=== PATIENT | female | born 1975 | race Caucasian/White ===

== ENCOUNTER 2016-07-21 11:31 | Emergency (ER) | payer OTHER ==
[~2016-07-21] VITALS: Ht 165.1 cm; Wt 86.2 kg
[~2016-07-21 11:31] MED LIST: ATORVASTATIN CA20 MG PO; CEFTRIAXONE2 G1 IM; CLEOCIN300 MG PO; CLINDAMYCIN HC300 MG PO; EXTRA STRENGTH500 M1 PO; HUMALOG100 UNIT/1 SC; LANTUS 10100 UNITS/ SC; LISINOPRIL10 MG PO; LORADAMED10 MG PO; METFORMIN HCL500 MG PO; OMEPRAZOLE40 M1 PO; PROZAC20 MG PO; SANTYL30 GM TP
[2016-07-21] MEDS ORDERED: RANITIDINE HCL150 MG PO (13:42)
[2016-07-21] MEDS ORDERED: PANTOPRAZOLE SO40 MG PO (13:42)
[2016-07-21] MEDS ORDERED: LISINOPRIL20 MG PO (13:44)
[2016-07-21] MEDS ORDERED: GABAPENTIN100 MG PO (13:45)
[2016-07-21] MEDS ORDERED: OTEZLA30 MG PO (13:46)
[2016-07-21 14:22] LABS: EOSINOPHIL (%) 0.4 % (0-5); EOSINOPHIL COUNT 0.1 K/uL (0-0.3); HEMATOCRIT 41.1 % (36.0-46.0); IMMATURE GRANULOCYTE (%) 0.6 % (0.0-0.7); IMMATURE GRANULOCYTE COUNT 0.1 K/uL; INSTRUMENT ABS NEUTROPHIL CT 11.3 K/uL; LYMPHOCYTE COUNT 1.6 K/uL (1.0-2.8); MCH 28.8 PG (29.0-34.0); MCHC 33.1 G/DL (30.0-36.0); MCV 87.1 FL (83-99); MEAN PLAT.VOLUME 9.6 uM^3 (9.5-12.4); MONOCYTE (%) 6.8 % (3-12); NEUTROPHIL (%) 80.7 % (45-76); NEUTROPHIL COUNT 11.3 K/uL (1.8-6.4); PLATELET COUNT 367 K/uL (156-360); RBC DIS.WIDTH-CV 13.5 % (11.8-14.6); RED BLOOD COUNT 4.72 M/uL (3.80-5.20)
[2016-07-21 14:30] LABS: CHLORIDE 100 mEq/L (99-109); POTASSIUM 4.3 mEq/L (3.7-5.4); SODIUM 135 mEq/L (136-147)
[2016-07-21 14:33] LABS: ANION GAP 12 MEQ/L (2-14)
[2016-07-21 14:34] LABS: TOTAL BILIRUBIN 0.6 mg/dL (0.0-1.0)
[2016-07-21 14:35] LABS: ALKALINE PHOSPHATASE 88 IU/L (3-129)
[2016-07-21 14:36] LABS: GFR ESTIMATE (CALCULATED) 58 mL/min/
[2016-07-21 14:37] LABS: UREA NITROGEN (BUN) 16 mg/dL (9-23)
[2016-07-21 14:39] LABS: ADD MIUA? YES; BILIRUBIN NEGATIVE; BLOOD MODERATE; COLOR YELLOW ((YELLOW)); GLUCOSE (STRIP) >=500; KETONES 20; LEUKOCYTES LARGE; NITRITE NEGATIVE; PROTEIN (STRIP) >=500; SPECIFIC GRAVITY 1.032 (1.000-1.030); UROBILINOGEN 0.2 MG/DL (0.2-1.0)
[2016-07-21 14:45] LABS: QUANTITATIVE HCG < 4.0 MIU/ML
[2016-07-21 14:47] LABS: GLUCOSE 568 mg/dL (70-99)
[2016-07-21 15:07] LABS: BACTERIA 2+ /HPF; CASTS NONE SEEN /LPF; CRYSTALS NONE SEEN; EPITHELIAL CELLS 2+ /HPF; MUCUS NONE SEEN /LPF; RED BLOOD CELLS 15-20 /HPF (0-5); WHITE BLOOD CELLS TNTC /HPF (0-5)
[2016-07-21 16:23] LABS: POINT-OF-CARE METER ID UU14100415
[2016-07-21 16:49] LABS: CHLORIDE 107 mEq/L (99-109); POTASSIUM 3.9 mEq/L (3.7-5.4); SODIUM 137 mEq/L (136-147)
[2016-07-21 16:51] LABS: GLUCOSE 389 mg/dL (70-99)
[2016-07-21 16:53] LABS: ANION GAP 8 MEQ/L (2-14)
[2016-07-21 16:55] LABS: GFR ESTIMATE (CALCULATED) > 59 mL/min/
[2016-07-21 16:56] LABS: UREA NITROGEN (BUN) 14 mg/dL (9-23)
[2016-07-21 17:36] LABS: POINT-OF-CARE METER ID UU13113702
[2016-07-21 18:13] LABS: POINT-OF-CARE METER ID UU13113702
[2016-07-21 19:32] LABS: POINT-OF-CARE METER ID UU13113702
[2016-07-21] MEDS ORDERED: BACTRIM,SEPT1 TABLET PO (20:03)
[2016-07-21] MEDS ORDERED: ZOFRAN4 MG PO (20:03)
[2016-07-21 20:14] VITALS: BP 158/90
== END 2016-07-21 20:19 | disposition home or self-care (01) ==
LOC: RME 11:31 → EME 11:31 → RME 20:19
PROVIDERS: Emergency Medicine; Physician Assistant
DX: N12 Tubulo-interstitial nephritis, not specified as acute or chronic (principal); E11.65 Type 2 diabetes mellitus with hyperglycemia; T38.3X6A Underdosing of insulin and oral hypoglycemic [antidiabetic] drugs, initial encounter; Z91.128 Patient's intentional underdosing of medication regimen for other reason; Z79.4 Long term (current) use of insulin; F32.9 Major depressive disorder, single episode, unspecified; K21.9 Gastro-esophageal reflux disease without esophagitis
CPT/HCPCS: 74177; 80048 91; 80053; 81003; 82948; 84702; 85025; 99281; 99285; J0696; J2270; J7030; J7050

== ENCOUNTER → 2016-09-28 | Outpatient (CLI) | payer OTHER ==
[~2016-09-28] MED LIST changes: +BACTRIM,SEPT1 TABLET PO; +GABAPENTIN100 MG PO; +LISINOPRIL20 MG PO; +OTEZLA30 MG PO; +PANTOPRAZOLE SO40 MG PO; +RANITIDINE HCL150 MG PO; +ZOFRAN4 MG PO
== END | disposition home or self-care (01) ==
LOC: PICC 09:22
DX: M86.171 Other acute osteomyelitis, right ankle and foot (principal)
CPT/HCPCS: 76937

== ENCOUNTER 2016-10-12 13:15 | Emergency (ER) | payer OTHER ==
[~2016-10-12] VITALS: Ht 160 cm; Wt 87.3 kg
[2016-10-12 13:31] LABS: POINT-OF-CARE METER ID UU13113778
[2016-10-12 14:03] LABS: CHLORIDE 102 mEq/L (99-109); POTASSIUM 4.5 mEq/L (3.7-5.4); SODIUM 135 mEq/L (136-147)
[2016-10-12 14:07] LABS: ANION GAP 9 MEQ/L (2-14)
[2016-10-12 14:08] LABS: TOTAL BILIRUBIN 0.4 mg/dL (0.0-1.0)
[2016-10-12 14:09] LABS: ADD MIUA? YES; BILIRUBIN NEGATIVE; BLOOD SMALL; COLOR YELLOW ((YELLOW)); GLUCOSE (STRIP) >=500; KETONES NEGATIVE; LEUKOCYTES NEGATIVE; NITRITE NEGATIVE; PROTEIN (STRIP) 100; SPECIFIC GRAVITY 1.027 (1.000-1.030); UROBILINOGEN 0.2 MG/DL (0.2-1.0)
[2016-10-12 14:09] LABS: ALKALINE PHOSPHATASE 72 IU/L (3-129); GFR ESTIMATE (CALCULATED) > 59 mL/min/
[2016-10-12 14:10] LABS: UREA NITROGEN (BUN) 18 mg/dL (9-23)
[2016-10-12 14:13] LABS: BACTERIA NONE SEEN /HPF; EPITHELIAL CELLS 1+ /HPF; MUCUS TRACE /LPF; RED BLOOD CELLS 0-5 /HPF (0-5); UCUL ADDED? NO; WHITE BLOOD CELLS 0-5 /HPF (0-5)
[2016-10-12 14:18] LABS: QUANTITATIVE HCG < 4.0 MIU/ML
[2016-10-12 14:19] LABS: GLUCOSE 435 mg/dL (70-99)
[2016-10-12 17:55] LABS: HEMATOCRIT 35.7 % (36.0-46.0); MCH 29.1 PG (29.0-34.0); MCHC 34.5 G/DL (30.0-36.0); MCV 84.4 FL (83-99); MEAN PLAT.VOLUME 9.6 uM^3 (9.5-12.4); PLATELET COUNT 289 K/uL (156-360); RBC DIS.WIDTH-CV 12.5 % (11.8-14.6); RBC DIS.WIDTH-SD 37.2 % (39-53); RED BLOOD COUNT 4.23 M/uL (3.80-5.20); WHITE BLOOD COUNT 10.4 K/uL (4.1-10.2)
[2016-10-12] MEDS ORDERED: ZOFRAN ODT4 MG PO (18:25)
[2016-10-12 18:49] VITALS: BP 130/76
== END 2016-10-12 19:00 | disposition home or self-care (01) ==
LOC: EME 13:15
PROVIDERS: Emergency Medicine; Nurse Practitioner Family
DX: E86.0 Dehydration (principal); E11.65 Type 2 diabetes mellitus with hyperglycemia; K52.9 Noninfective gastroenteritis and colitis, unspecified; Z79.4 Long term (current) use of insulin; K21.9 Gastro-esophageal reflux disease without esophagitis
CPT/HCPCS: 80053; 81003; 82948; 83605; 84702; 85027; 87040; 99281; 99284; J2405; J7030

== ENCOUNTER 2017-05-27 10:03 | Emergency (ER) | payer OTHER ==
[~2017-05-27] VITALS: Ht 165.1 cm; Wt 90.9 kg
[~2017-05-27 10:03] MED LIST changes: +ZOFRAN ODT4 MG PO
[2017-05-27 11:05] LABS: BASOPHIL (%) 0.3 % (0-1); EOSINOPHIL (%) 3.5 % (0-5); EOSINOPHIL COUNT 0.2 K/uL (0-0.3); HEMATOCRIT 38.2 % (36.0-46.0); HEMOGLOBIN 12.7 G/DL (11.9-15.5); IMMATURE GRANULOCYTE (%) 0.3 % (0.0-0.7); LYMPHOCYTE (%) 28.5 % (15-42); LYMPHOCYTE COUNT 1.8 K/uL (1.0-2.8); MCHC 33.2 G/DL (30.0-36.0); MCV 87.2 FL (83-99); MONOCYTE (%) 6.3 % (3-12); MONOCYTE COUNT 0.4 K/uL (0-0.8); NEUTROPHIL (%) 61.1 % (45-76); NEUTROPHIL COUNT 3.9 K/uL (1.8-6.4); PLATELET COUNT 308 K/uL (156-360); RBC DIS.WIDTH-CV 13.5 % (11.8-14.6); RBC DIS.WIDTH-SD 42.8 % (39-53); RED BLOOD COUNT 4.38 M/uL (3.80-5.20); WHITE BLOOD COUNT 6.3 K/uL (4.1-10.2)
[2017-05-27 11:09] LABS: CARBON DIOXIDE (BICARBONATE) 28.5 MEQ/L (20-31)
[2017-05-27 11:18] LABS: CHLORIDE 110 mEq/L (99-109)
[2017-05-27 11:19] LABS: POTASSIUM 4.1 mEq/L (3.7-5.4); SODIUM 142 mEq/L (136-147)
[2017-05-27 11:20] LABS: GLUCOSE 252 mg/dL (70-99)
[2017-05-27 11:24] LABS: CREATININE 0.7 mg/dL (0.6-1.3); GFR ESTIMATE (CALCULATED) > 59 mL/min/
[2017-05-27 11:25] LABS: UREA NITROGEN (BUN) 16 mg/dL (9-23)
[2017-05-27 11:30] LABS: APPEARANCE SL.HAZY ((CLEAR)); BILIRUBIN NEGATIVE; BLOOD SMALL; COLOR YELLOW ((YELLOW)); GLUCOSE (STRIP) >=500; KETONES NEGATIVE; LEUKOCYTES NEGATIVE; NITRITE NEGATIVE; PROTEIN (STRIP) >=500; SPECIFIC GRAVITY 1.012 (1.000-1.030); UROBILINOGEN 0.2 MG/DL (0.2-1.0)
[2017-05-27 11:37] LABS: BACTERIA RARE /HPF; EPITHELIAL CELLS 1+ /HPF; HYALINE CASTS 0-5 /LPF; MUCUS TRACE /LPF; WHITE BLOOD CELLS 0-5 /HPF (0-5)
[2017-05-27 13:05] VITALS: BP 186/94
== END 2017-05-27 13:06 | disposition home or self-care (01) ==
LOC: EME 10:03
PROVIDERS: Emergency Medicine
DX: E11.65 Type 2 diabetes mellitus with hyperglycemia (principal); Z79.4 Long term (current) use of insulin; E86.0 Dehydration; K21.9 Gastro-esophageal reflux disease without esophagitis; F41.9 Anxiety disorder, unspecified; F32.9 Major depressive disorder, single episode, unspecified
CPT/HCPCS: 80048; 81003; 82010; 82803; 85025; 99281; 99285; J7030

== ENCOUNTER 2017-06-05 22:05 | Emergency (ER) | payer OTHER ==
[~2017-06-05] VITALS: Ht 165.1 cm; Wt 89.8 kg
[2017-06-05 23:16] LABS: HEMATOCRIT 37.6 % (36.0-46.0); HEMOGLOBIN 12.7 G/DL (11.9-15.5); MCH 28.7 PG (29.0-34.0); MCHC 33.8 G/DL (30.0-36.0); MCV 85.1 FL (83-99); PLATELET COUNT 394 K/uL (156-360); RBC DIS.WIDTH-CV 13.3 % (11.8-14.6); RBC DIS.WIDTH-SD 41.3 % (39-53); RED BLOOD COUNT 4.42 M/uL (3.80-5.20); WHITE BLOOD COUNT 9.8 K/uL (4.1-10.2)
[2017-06-05 23:34] LABS: ALBUMIN 3.3 g/dL (3.2-4.8); CHLORIDE 106 mEq/L (99-109); POTASSIUM 4.3 mEq/L (3.7-5.4); SODIUM 140 mEq/L (136-147)
[2017-06-05 23:37] LABS: GLUCOSE 236 mg/dL (70-99); TOTAL PROTEIN 6.9 g/dL (6.4-8.3)
[2017-06-05 23:39] LABS: TOTAL BILIRUBIN 0.3 mg/dL (0.0-1.0)
[2017-06-05 23:40] LABS: ALKALINE PHOSPHATASE 82 IU/L (3-129); CREATININE 0.8 mg/dL (0.6-1.3); GFR ESTIMATE (CALCULATED) > 59 mL/min/
[2017-06-05 23:41] LABS: UREA NITROGEN (BUN) 21 mg/dL (9-23)
[2017-06-05 23:42] LABS: AST (GOT) 21 IU/L (2-34)
[2017-06-05 23:43] LABS: ALT (GPT) 26 IU/L (3-49)
[2017-06-05 23:50] LABS: QUANTITATIVE HCG < 4.0 MIU/ML
[2017-06-06 00:05] LABS: APPEARANCE CLEAR ((CLEAR)); BILIRUBIN NEGATIVE; BLOOD SMALL; COLOR YELLOW ((YELLOW)); GLUCOSE (STRIP) 50; KETONES NEGATIVE; LEUKOCYTES NEGATIVE; NITRITE NEGATIVE; PROTEIN (STRIP) >=500; SPECIFIC GRAVITY 1.017 (1.000-1.030); UROBILINOGEN 0.2 MG/DL (0.2-1.0)
[2017-06-06 00:21] LABS: BACTERIA RARE /HPF; EPITHELIAL CELLS RARE /HPF; MUCUS TRACE /LPF; UCUL ADDED? NO; WHITE BLOOD CELLS 0-5 /HPF (0-5)
[2017-06-06 00:51] LABS: LIPASE 26 U/L (1.0-51.0)
[2017-06-06 00:54] LABS: CARBON DIOXIDE (BICARBONATE) 29.1 MEQ/L (20-31)
[2017-06-06 01:50] LABS: TROP-I INTERPRETATION NEGATIVE; TROPONIN-I < 0.01 ng/mL (0.0-0.30)
[2017-06-06] MEDS ORDERED: ZOFRAN ODT4 MG PO (02:23)
[2017-06-06] MEDS ORDERED: BENTYL20 MG PO (02:23)
[2017-06-06 02:45] VITALS: BP 180/100
== END 2017-06-06 02:45 | disposition home or self-care (01) ==
LOC: EME 22:05
PROVIDERS: Nurse Practitioner Family
DX: R11.2 Nausea with vomiting, unspecified (principal); K22.6 Gastro-esophageal laceration-hemorrhage syndrome; E11.9 Type 2 diabetes mellitus without complications; Z79.4 Long term (current) use of insulin; K21.9 Gastro-esophageal reflux disease without esophagitis; F41.9 Anxiety disorder, unspecified; F32.9 Major depressive disorder, single episode, unspecified
CPT/HCPCS: 74177; 80053; 81003; 82803; 82948; 83690; 84484; 84702; 85027; 93005; 99281; 99283; J1885; J2405; J7030

== ENCOUNTER 2017-07-01 09:32 | Emergency (ER) | payer OTHER ==
[~2017-07-01] VITALS: Ht 165.1 cm; Wt 86.0 kg
[~2017-07-01 09:32] MED LIST changes: +BENTYL20 MG PO
[2017-07-01] MEDS ORDERED: DEBROX15 ML BOTH EARS (09:50)
[2017-07-01] MEDS ORDERED: AMOXICILLIN875 MG PO (09:50)
[2017-07-01 10:10] VITALS: BP 179/87
== END 2017-07-01 10:10 | disposition home or self-care (01) ==
LOC: EME 09:32
DX: H66.92 Otitis media, unspecified, left ear (principal); H61.22 Impacted cerumen, left ear; E11.9 Type 2 diabetes mellitus without complications; Z79.4 Long term (current) use of insulin; Z98.890 Other specified postprocedural states
CPT/HCPCS: 99281; 99283